=== PATIENT | male | born 1935 | race Caucasian/White ===

== ENCOUNTER 2019-01-20 09:21 | Outpatient (CLI) | payer MEDICARE ==
--- NOTE | 2019-01-20 11:35 | ULT ---
ABDOMINAL ULTRASOUND: Date: 01/20/19 HISTORY: Constant pelvic pain x1 year. Right upper quadrant abdominal pain x2 weeks. COMPARISON: None. TECHNIQUE: Utilizing multihertz transducer, sonographic imaging of the abdomen is performed in the longitudinal and transverse plane. FINDINGS: Evaluation is limited by bowel gas. The head of the pancreas has a normal echotexture. Remainder of the pancreas is obscured by bowel gas . Limited evaluation of the hepatic parenchyma. Grossly, no hepatic abnormality. Right hepatic lobe kerry sures 15.3 cm. Main portal vein is patent. Appropriate direction of flow. Suboptimal evaluation of the common bile duct. Contracted gallbladder without definite sonographic evidence of cholecystitis. Questionable sludge ve rsus nonshadowing stones. Evaluation is limited due to overall gallbladder contraction. Right kidney has a normal cortical echotexture. No hydronephrosis. Right kidney measures 5.3 x 9.0 x 5.6 cm. Limited evaluation of the left renal cortex. No evidence of hydronephrosis. Left kidney measu res 5.7 x 10.6 x 6.5 cm. Spleen has a normal echotexture, measuring 13.2 cm. Suboptimal evaluation of the IVC. Visualized aorta has a normal caliber. IMPRESSION: Limited evaluation due to bowel gas. Grossly no acute abnormality. Questionable sludge and small ston es. Correlation made with a gallbladder ultrasound from 05/31/16 does not demonstrate any evidence of cholelithiasis, gallbladder wall polyps, or sludge. If there is concern for gallbladder pathology, c onsider HIDA scan. POS: [facility] [place]
== END 2019-01-20 09:22 | disposition home or self-care (01) ==
LOC: ULT 09:21
PROVIDERS: ATTEND Internal Medicine
DX: R10.11 Right upper quadrant pain (principal)
CPT/HCPCS: 76700

== ENCOUNTER 2019-07-13 10:31 | Outpatient (CLI) | payer MEDICARE ==
[2019-07-13] MEDS ORDERED: Iopamidol-370 76% 500 ML 1 ML ONE (11:36)
--- NOTE | 2019-07-13 11:58 | CT ---
CT ABDOMEN AND PELVIS WITH ORAL AND IV CONTRAST: HISTORY: Right upper quadrant abdominal pain and constipation. FINDINGS: There are dependent changes in the lung bases. The liver, spleen, pancreas and adrenal glands appear normal. No calcified gallstones are seen. There are tiny low density lesions in the kidneys, likely c ysts. There is a 2 cm exophytic mass arising from the anterior cortex of the left kidney with attenua tion values of 33 Hounsfield units. No free air, free fluid or lymphadenopathy is seen in the abdomen or pelvis. The small bowel loops ar e not abnormally dilated. There are vascular calcifications without evidence of aneurysmal dilatation of the abdominal aorta. Degenerative changes are present in the spine. IMPRESSION: Indeterminate 2 cm left renal mass. Evaluation with MRI abdomen (with and without intravenous contras t) using renal mass protocol is recommended. POS: [facility]
== END 2019-07-13 10:32 | disposition home or self-care (01) ==
LOC: BICCT 10:31
PROVIDERS: ATTEND Physician Assistant Medical
DX: K59.09 Other constipation (principal); R10.11 Right upper quadrant pain; R63.4 Abnormal weight loss; N28.89 Other specified disorders of kidney and ureter
CPT/HCPCS: 74177; 82565; Q9967

== ENCOUNTER 2019-07-27 12:25 | Outpatient (CLI) | payer MEDICARE ==
--- NOTE | 2019-07-27 15:41 | MRI ---
MRI ABDOMEN WITH AND WITHOUT IV CONTRAST: HISTORY: Left kidney mass. CORRELATION: CT scan of 07/13/2019. FINDINGS: Exam is limited due to marked motion artifact. There are tiny bilateral renal cysts. The 2 cm exophytic mass arising from the anterior cortex of th e left upper kidney is T2 hyperintense. The characteristics on pre- and postcontrast T1 images canno t be satisfactorily evaluated due to the presence of motion artifact. No obvious postcontrast enhanc ement is definitely seen. The liver, spleen, pancreas, adrenal glands, and gallbladder appear normal. No free fluid or lymphadenopathy is seen in the abdomen. There is no evidence of aneurysmal dilatati on of the abdominal aorta. There are degenerative changes in the spine. IMPRESSION: 1. Limited exam due to motion artifact. 2. The 2 cm exophytic left renal mass is probably a cyst. A followup CT scan with and without IV co ntrast is recommended in 6 months. POS: OFF
== END 2019-07-27 12:26 | disposition home or self-care (01) ==
LOC: SCSMRI 12:25
PROVIDERS: ATTEND Physician Assistant Medical
DX: N28.89 Other specified disorders of kidney and ureter (principal); R10.11 Right upper quadrant pain; G89.29 Other chronic pain
CPT/HCPCS: 74183

== ENCOUNTER 2020-02-01 15:01 | Outpatient (CLI) | payer MEDICARE ==
--- NOTE | 2020-02-01 15:50 | CT ---
Exam: Abdomen CT without contrast Pelvic CT without contrast HISTORY: Renal cyst. COMPARISON: 07/13/2019 Correlation: Abdomen MRI 07/27/2019 FINDINGS: Abdomen CT: Lung bases:Chronic changes Heart size: Normal heart size. No significant pericardial fluid. Aorta: Atherosclerosis and elongation. No periaortic fat stranding Solid organs: Limited evaluation by the lack of IV contrast. Grossly no solid organ abnormality Lymph nodes: No gastrohepatic, retrocrural or periportal lymphadenopathy Gallbladder: No acute abnormality Mesentery: No mass, lymphadenopathy, free air or free fluid Kidneys: Bilaterally, no hydronephrosis, nephrolithiasis or perinephric fat stranding. Bilateral uret ers have a normal caliber. No hydroureter, periureteral fat stranding or ureterolithiasis. Exophytic hypodensity emanating from the anterior-superior pole of the left kidney, measures 2.4 x 2. 4 cm with an attenuation coefficient of 31 Hounsfield units. Previously, this lesion measured 2.0 x 2.0 cm. Slight interval increase in size. Alimentary canal: Limited evaluation by the lack of oral contrast. No bowel obstruction. Normal ileoc ecal junction. Normal caliber appendix. Scattered fecal material in a nondistended, nondilated colon. CT PELVIS: No mass, adenopathy, free air or free fluid. Urinary bladder: Limited evaluation due to lack of inadequate distention. Osseous structures: No lytic or blastic lesions IMPRESSION: 1. No evidence of obstructive uropathy 2. Redemonstration of exophytic hypodense focus emanating from the anterior superior pole of the left kidney. Interval slight increase in size. Continued surveillance is recommended.
== END 2020-02-01 15:02 | disposition home or self-care (01) ==
LOC: BICCT 15:01
PROVIDERS: ATTEND Internal Medicine Nephrology
DX: Q61.9 Cystic kidney disease, unspecified (principal); N28.89 Other specified disorders of kidney and ureter
CPT/HCPCS: 74176

== ENCOUNTER 2020-05-03 13:06 | Outpatient (CLI) | payer MEDICARE ==
[2020-05-03] MEDS ORDERED: Iopamidol-370 76% 500 ML 1 ML ONE (13:36)
--- NOTE | 2020-05-03 14:31 | CT ---
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 COMPARISON: CT stone protocol of 02/01/[address] abdomen and pelvis with IV contrast of 07/13/19. FINDINGS: Chronic changes of the lung bases are again seen. No calcified gallstones are noted. The liver, splee n, pancreas, and adrenal glands are normal. No free air, free fluid or lymphadenopathy is seen in the abdomen. The aorta is tortuous. There are degenerative changes in the spine. No calculi are seen in the kidneys or visualized portions of the ureters. No hydroureteronephrosis i s seen on either side. There is normal contrast excretion into the ureters. The exophytic mass arisin g from the anterior cortex of the left kidney is stable in size since 02/01/20 measuring approximately 2.5 cm and has increased in size since 07/13/19 (2 cm). There is no postcontrast enhancement in thi s mass with the noncontrast CT attenuation value of 31 Hounsfield units. IMPRESSION: Stable nonenhancing left renal mass since 02/01/20 and interval increase in size since 07/13/19. Six mo nth follow-up is recommended. POS: OFF
== END 2020-05-03 13:07 | disposition home or self-care (01) ==
LOC: BICCT 13:06
PROVIDERS: ATTEND Urology
DX: D41.01 Neoplasm of uncertain behavior of right kidney (principal); N28.89 Other specified disorders of kidney and ureter
CPT/HCPCS: 74170; 82565

== ENCOUNTER 2021-01-21 19:38 | Emergency (ER) | payer MEDICARE ==
[2021-01-21 21:42] LABS: #Basophils 0.1 thou/uL (0.0-0.2); #Eosinphils 0.4 thou/uL (0.0-0.7); #Lymphocytes 1.7 thou/uL (1.20-3.40); #Monocytes 0.9 thou/uL (0.11-0.59); #Neutrophils 7.3 thou/uL (1.40-6.50); %Basophils 0.5 % (0.0-1.0); %Eosinophils 4.2 % (0.0-10.0); %Lymphocytes 16.6 % (21.0-51.0); %Neutrophils 69.7 % (42.0-75.0); Hemoglobin 13.4 g/dL (14.0-18.0); Mean Corpuscular HGB CONC 33.9 g/dL (32.0-36.0); Mean Corpuscular Hemoglobin 34.5 pg (27.0-31.0); Mean Platelet Volume 7.3 fL (7.4-10.4); Platelet Count 311 thou/uL (130-400); RBC Distribution Width 16.7 % (11.5-14.5); Red Blood Cell (RBC) Count 3.88 mill/uL (4.70-6.10); White Blood Cell (WBC) Count 10.4 thou/uL (4.8-10.8)
[2021-01-21 22:07] LABS: ALT (SGPT) 15 U/L (8-55); AST (SGOT) 18 U/L (5-34); Albumin 4.2 g/dL (3.4-4.8); Alkaline Phosphatase 61 U/L (40-110); Anion Gap 13 mmol/L (10-20); BUN (Urea Nitrogen) 10 mg/dL (8.4-25.7); Bilirubin, Total 0.6 mg/dL (0.2-1.2); Calc. Creatinine Clearance 0 mL/min (70-130); Calcium 9.1 mg/dL (7.8-10.44); Carbon Dioxide 27 mmol/L (23-31); Chloride 99 mmol/L (98-107); Globulin 3.3 g/dL (2.4-3.5); Glucose 113 mg/dL (83-110); Potassium 4.1 mmol/L (3.5-5.1); Protein, Total 7.5 g/dL (5.8-8.1); Sodium 135 mmol/L (136-145)
== END 2021-01-21 23:57 | disposition left against medical advice (07) ==
LOC: ERS 19:38
DX: Z53.21 Procedure and treatment not carried out due to patient leaving prior to being seen by health care provider (principal)
CPT/HCPCS: 36415; 80053; 85025

== ENCOUNTER 2021-08-28 10:52 | Observation (INO) | payer MEDICARE ==
[2021-08-28] MEDS ORDERED: Aspirin Chewable 81 MG TAB ONE (11:17)
[2021-08-28 12:13] LABS: ALT (SGPT) 14 U/L (8-55); AST (SGOT) 17 U/L (5-34); Albumin 3.9 g/dL (3.4-4.8); Alkaline Phosphatase 41 U/L (40-110); Anion Gap 11 mmol/L (10-20); BUN (Urea Nitrogen) 6 mg/dL (8.4-25.7); Bilirubin, Total 0.9 mg/dL (0.2-1.2); Calc. Creatinine Clearance 0 mL/min (70-130); Calcium 8.7 mg/dL (7.8-10.44); Carbon Dioxide 26 mmol/L (23-31); Chloride 96 mmol/L (98-107); Globulin 3.2 g/dL (2.4-3.5); Glucose 117 mg/dL (83-110); Potassium 3.9 mmol/L (3.5-5.1); Protein, Total 7.1 g/dL (5.8-8.1); Sodium 129 mmol/L (136-145)
[2021-08-28 12:57] LABS: #Basophils 0.1 thou/uL (0.0-0.2); #Eosinphils 0.3 thou/uL (0.0-0.7); #Lymphocytes 1.1 thou/uL (1.20-3.40); #Monocytes 0.9 thou/uL (0.11-0.59); #Neutrophils 6.1 thou/uL (1.40-6.50); %Basophils 0.6 % (0.0-1.0); %Eosinophils 3.3 % (0.0-10.0); %Lymphocytes 13.3 % (21.0-51.0); %Monocytes 10.2 % (0.0-10.0); %Neutrophils 72.7 % (42.0-75.0); Hemoglobin 12.4 g/dL (14.0-18.0); Mean Corpuscular HGB CONC 33.2 g/dL (32.0-36.0); Mean Corpuscular Hemoglobin 34.9 pg (27.0-31.0); Mean Platelet Volume 7.1 fL (7.4-10.4); Platelet Count 373 thou/uL (130-400); Red Blood Cell (RBC) Count 3.54 mill/uL (4.70-6.10); White Blood Cell (WBC) Count 8.4 thou/uL (4.8-10.8)
[2021-08-28] MEDS ORDERED: Acetaminophen 325 MG TAB PO PRN (13:38)
[2021-08-28] MEDS ORDERED: Ondansetron PF 4 MG/2 ML Vial IVP PRN (13:38)
[2021-08-28] MEDS ORDERED: Nitroglycerin 0.4 MG TAB (25 Tab Bottle) SL PRN (13:42)
[2021-08-28] MEDS ORDERED: Enoxaparin Sodium 40 MG/0.4 ML SYRINGE SC SCH (13:45)
[2021-08-28] MEDS ORDERED: Sodium Chloride 0.9% 1,000 ML IV SCH (13:45)
[2021-08-28 14:59] LABS: Thyroid Stimulating Hormone 0.3225 uIU/mL (0.35-4.94)
[2021-08-28] MEDS ORDERED: Enoxaparin Sodium 40 MG/0.4 ML SYRINGE ONE (16:02)
[2021-08-28 16:31] LABS: Troponin I Less than 0.010 ng/mL (< 0.028)
[2021-08-28 17:50] VITALS: BMI 23.6
[2021-08-28 19:44] LABS: Troponin I Less than 0.010 ng/mL (< 0.028)
[2021-08-28] MEDS: Famotidine 20 MG TAB PO SCH (20:32)
[2021-08-28 23:13] LABS: Magnesium 2.3 mg/dL (1.6-2.6)
[2021-08-29 05:05] LABS: Anion Gap 10 mmol/L (10-20); BUN (Urea Nitrogen) 8 mg/dL (8.4-25.7); Calc. Creatinine Clearance 76 mL/min (70-130); Calcium 8.4 mg/dL (7.8-10.44); Carbon Dioxide 26 mmol/L (23-31); Chloride 101 mmol/L (98-107); Glucose 97 mg/dL (83-110); Potassium 3.8 mmol/L (3.5-5.1); Sodium 133 mmol/L (136-145)
[2021-08-29 05:17] LABS: Band 4 % (5-11); Eosinophils 6 % (0-10); Hemoglobin 12.2 g/dL (14.0-18.0); Lymphocytes 15 % (21-51); MDiff Complete? YES; Mean Corpuscular HGB CONC 33.8 g/dL (32.0-36.0); Mean Corpuscular Hemoglobin 34.8 pg (27.0-31.0); Mean Platelet Volume 6.7 fL (7.4-10.4); Monocytes 12 % (0-10); Neutrophil 61 % (42-75); Platelet Count 362 thou/uL (130-400); RBC Distribution Width 16.9 % (11.5-14.5); Reactive Lymphocytes 2 % (0-10); Red Blood Cell (RBC) Count 3.51 mill/uL (4.70-6.10); White Blood Cell (WBC) Count 7.7 thou/uL (4.8-10.8)
[2021-08-29 08:52] VITALS: TEMP 97.9
[2021-08-29] MEDS ORDERED: Aspirin 81 mg Enteric Coated Tablet PO SCH (09:00)
[2021-08-29] MEDS ORDERED: Amlodipine 5 MG TAB PO SCH (09:00)
[2021-08-29] MEDS ORDERED: Enoxaparin Sodium 40 MG/0.4 ML SYRINGE SC SCH (09:00)
[2021-08-29 11:22] VITALS: BP 153/74
[2021-08-29 11:25] LABS: SARS-CoV-2 PCR by NAA Not Detected (NotDetected)
[2021-08-29] MEDS ORDERED: ADENOSINE 60 MG/20 ML VIAL ONE (11:32)
[2021-08-29] MEDS: Famotidine 20 MG TAB PO SCH (11:36)
== END 2021-08-29 15:19 | disposition home or self-care (01) ==
LOC: ERS 10:52 → ERHOLD 13:33 → 2NO 17:10
PROVIDERS: ADMIT Internal Medicine; ATTEND Physician Assistant Medical
DX: R07.89 Other chest pain (principal); D53.9 Nutritional anemia, unspecified; I10 Essential (primary) hypertension; E03.9 Hypothyroidism, unspecified; E87.1 Hypo-osmolality and hyponatremia; I07.1 Rheumatic tricuspid insufficiency; Z79.82 Long term (current) use of aspirin; Z79.899 Other long term (current) drug therapy; Z20.822 Contact with and (suspected) exposure to COVID-19
CPT/HCPCS: 71045; 78452; 80048; 82607; 82746; 83735; 84436; 84484 ×2; 85025; 93005; 93017; 93306; 96372 ×2; 99285; A9500; G0378 ×3; U0003; U0005; 36415; 80053; 84443; J0153; J1650; J7050

== ENCOUNTER 2022-07-31 16:27 | Inpatient (IN) | payer MEDICARE ==
[~2022-07-31 16:27] MED LIST: Iopamidol-370 76% 500 ML 1 ML ONE
[2022-07-31 17:21] LABS: Bacteria/HPF 1+ HPF (None Seen); Bilirubin Negative (Negative); Blood, Urine 1+ (Negative); Clarity Clear (Clear); Glucose, Urine (Dipstick) Normal (Negative); Ketone, Urine 20 mg/dL (Negative); Leukocyte 250 Leu/uL (Negative); Nitrite Negative (Negative); Protein, Urine (Dipstick) 30 mg/dL (Neg-Trace); Specific Gravity, Urine 1.014 (1.002-1.036); Squamous Epithelial 0-3 HPF (0-3); Urobilinogen Normal mg/dL (Less than 2)
[2022-07-31] MEDS ORDERED: Cefepime 2 GM VIAL ONE (17:26)
[2022-07-31] MEDS ORDERED: Vancomycin 1.5 GRAM/300 ML BAG 1.5 GM in Premix Bag 1 BAG IVPB SCH (17:45)
[2022-07-31 18:24] LABS: Hemoglobin 11.8 g/dL (14.0-18.0); Mean Corpuscular HGB CONC 35.2 g/dL (32.0-36.0); Mean Corpuscular Hemoglobin 36.4 pg (27.0-31.0); Mean Platelet Volume 8.1 fL (7.4-10.4); Platelet Count 223 10x3/uL (130-400); RBC Distribution Width 16.6 % (11.5-14.5); Red Blood Cell (RBC) Count 3.24 mill/uL (4.70-6.10)
[2022-07-31 18:38] LABS: Band 14 % (5-11); Lymphocytes 4 % (21-51); MDiff Complete? YES; Monocytes 15 % (0-10); Neutrophil 62 % (42-75); Platelet Morphology Comment Appears Adequate; RBC Morphology Normal; Reactive Lymphocytes 5 % (0-10)
[2022-07-31 18:39] LABS: ALT (SGPT) 19 U/L (8-55); AST (SGOT) 38 U/L (5-34); Albumin 3.1 g/dL (3.4-4.8); Alkaline Phosphatase 38 U/L (40-110); Anion Gap 13 mmol/L (10-20); BUN (Urea Nitrogen) 12 mg/dL (8.4-25.7); Bilirubin, Total 1.2 mg/dL (0.2-1.2); Calc. Creatinine Clearance 0 mL/min (70-130); Calcium 7.6 mg/dL (7.8-10.44); Carbon Dioxide 22 mmol/L (23-31); Chloride 88 mmol/L (98-107); Estimated GFR 90; Globulin 2.7 g/dL (2.4-3.5); Glucose 103 mg/dL (83-110); Lipase 19 U/L (8-78); Potassium 4.1 mmol/L (3.5-5.1); Protein, Total 5.8 g/dL (5.8-8.1)
[2022-07-31 18:47] LABS: Sodium 120 mmol/L (136-145)
[2022-07-31 19:00] LABS: SARS-CoV-2 NAA Rapid Test Not Detected (NotDetected)
[2022-07-31] MEDS ORDERED: Ondansetron PF 4 MG/2 ML Vial IVP PRN (20:24)
[2022-07-31] MEDS ORDERED: Acetaminophen 650 MG Suppository PR PRN (20:24)
[2022-07-31] MEDS ORDERED: Ondansetron ODT 4 MG TAB PO PRN (20:24)
[2022-07-31] MEDS ORDERED: Morphine 4 MG/ML VIAL SLOW IVP PRN (20:34)
[2022-07-31 21:25] LABS: Lactic Acid 1.3 mmol/L (0.5-2.2)
[2022-07-31] MEDS ORDERED: Azithromycin 500 MG VIAL ONE (22:50)
[2022-07-31] MEDS: Azithromycin 500 MG in Sodium Chloride 0.9% 250 ML 250 ML IVPB SCH (23:00)
[2022-08-01] MEDS ORDERED: cefTRIAXone\\ROCEPHIN 1 GM VIAL ONE (05:47)
[2022-08-01] MEDS: cefTRIAXone\\ROCEPHIN 1 GM in Sodium Chloride 0.9% 100 ML IVPB SCH (05:53)
[2022-08-01 06:01] LABS: Hemoglobin 10.5 g/dL (14.0-18.0); Mean Corpuscular HGB CONC 35.1 g/dL (32.0-36.0); Mean Corpuscular Hemoglobin 35.8 pg (27.0-31.0); Mean Platelet Volume 8.1 fL (7.4-10.4); Platelet Count 198 10x3/uL (130-400); RBC Distribution Width 16.5 % (11.5-14.5); Red Blood Cell (RBC) Count 2.92 mill/uL (4.70-6.10)
[2022-08-01 06:11] LABS: Anion Gap 9 mmol/L (10-20); BUN (Urea Nitrogen) 11 mg/dL (8.4-25.7); Calc. Creatinine Clearance 0 mL/min (70-130); Calcium 7.6 mg/dL (7.8-10.44); Carbon Dioxide 24 mmol/L (23-31); Chloride 92 mmol/L (98-107); Estimated GFR 91; Glucose 96 mg/dL (83-110); Potassium 3.6 mmol/L (3.5-5.1); Sodium 121 mmol/L (136-145)
[2022-08-01 06:44] LABS: Anisocytosis SLIGHT = 6-15 cells (100X) (0-5/hpf); Band 10 % (5-11); Lymphocytes 6 % (21-51); MDiff Complete? YES; Monocytes 13 % (0-10); Neutrophil 71 % (42-75)
[2022-08-01] MEDS: Oseltamivir 75 MG CAP PO SCH ×3 (06:54→21:31)
[2022-08-01 09:44] LABS: Anion Gap 9 mmol/L (10-20); BUN (Urea Nitrogen) 11 mg/dL (8.4-25.7); Calc. Creatinine Clearance 0 mL/min (70-130); Calcium 7.7 mg/dL (7.8-10.44); Carbon Dioxide 25 mmol/L (23-31); Chloride 91 mmol/L (98-107); Estimated GFR 90; Glucose 110 mg/dL (83-110); Potassium 3.7 mmol/L (3.5-5.1); Sodium 121 mmol/L (136-145)
[2022-08-01 13:35] LABS: Anion Gap 11 mmol/L (10-20); BUN (Urea Nitrogen) 12 mg/dL (8.4-25.7); Calc. Creatinine Clearance 0 mL/min (70-130); Calcium 8.2 mg/dL (7.8-10.44); Carbon Dioxide 23 mmol/L (23-31); Chloride 91 mmol/L (98-107); Estimated GFR 90; Glucose 94 mg/dL (83-110); Potassium 3.6 mmol/L (3.5-5.1); Sodium 121 mmol/L (136-145)
[2022-08-01] MEDS ORDERED: Sodium Chloride 3% 500 ML IVPB SCH (14:15)
[2022-08-01 15:51] LABS: ALT (SGPT) 18 U/L (8-55); AST (SGOT) 35 U/L (5-34); Albumin 2.9 g/dL (3.4-4.8); Alkaline Phosphatase 46 U/L (40-110); Anion Gap 8 mmol/L (10-20); BUN (Urea Nitrogen) 13 mg/dL (8.4-25.7); Bilirubin, Total 0.6 mg/dL (0.2-1.2); Calc. Creatinine Clearance 0 mL/min (70-130); Calcium 7.5 mg/dL (7.8-10.44); Carbon Dioxide 26 mmol/L (23-31); Chloride 90 mmol/L (98-107); Estimated GFR 87; Globulin 2.6 g/dL (2.4-3.5); Glucose 99 mg/dL (83-110); Potassium 3.5 mmol/L (3.5-5.1); Protein, Total 5.5 g/dL (5.8-8.1); Sodium 120 mmol/L (136-145)
[2022-08-01 15:57] LABS: Anion Gap 8 mmol/L (10-20); BUN (Urea Nitrogen) 13 mg/dL (8.4-25.7); Calc. Creatinine Clearance 0 mL/min (70-130); Calcium 7.6 mg/dL (7.8-10.44); Carbon Dioxide 25 mmol/L (23-31); Chloride 91 mmol/L (98-107); Estimated GFR 88; Glucose 98 mg/dL (83-110); Potassium 3.5 mmol/L (3.5-5.1); Sodium 120 mmol/L (136-145)
[2022-08-01 19:22] LABS: Anion Gap 7 mmol/L (10-20); BUN (Urea Nitrogen) 15 mg/dL (8.4-25.7); Calc. Creatinine Clearance 0 mL/min (70-130); Calcium 7.6 mg/dL (7.8-10.44); Carbon Dioxide 26 mmol/L (23-31); Chloride 93 mmol/L (98-107); Estimated GFR 87; Glucose 100 mg/dL (83-110); Potassium 3.5 mmol/L (3.5-5.1); Sodium 122 mmol/L (136-145)
[2022-08-01 19:31] LABS: Sodium 122 mmol/L (136-145)
[2022-08-01] MEDS: Azithromycin 500 MG in Sodium Chloride 0.9% 250 ML 250 ML IVPB SCH (21:32)
[2022-08-01 21:56] VITALS: BMI 20.6
[2022-08-01 23:18] LABS: Anion Gap 12 mmol/L (10-20); BUN (Urea Nitrogen) 13 mg/dL (8.4-25.7); Calc. Creatinine Clearance 83 mL/min (70-130); Calcium 7.5 mg/dL (7.8-10.44); Carbon Dioxide 21 mmol/L (23-31); Chloride 95 mmol/L (98-107); Estimated GFR 92; Glucose 80 mg/dL (83-110); Potassium 3.6 mmol/L (3.5-5.1); Sodium 124 mmol/L (136-145)
[2022-08-02] MEDS: Levothyroxine Sodium 125 MCG TAB PO SCH (05:30)
[2022-08-02] MEDS: cefTRIAXone\\ROCEPHIN 1 GM in Sodium Chloride 0.9% 100 ML IVPB SCH (05:30)
[2022-08-02 06:46] LABS: Hemoglobin 11.1 g/dL (14.0-18.0); Mean Corpuscular HGB CONC 35.1 g/dL (32.0-36.0); Mean Corpuscular Hemoglobin 36.6 pg (27.0-31.0); Mean Platelet Volume 7.8 fL (7.4-10.4); Platelet Count 215 10x3/uL (130-400); RBC Distribution Width 16.5 % (11.5-14.5); Red Blood Cell (RBC) Count 3.02 mill/uL (4.70-6.10)
[2022-08-02 07:00] LABS: ALT (SGPT) 21 U/L (8-55); AST (SGOT) 33 U/L (5-34); Albumin 2.8 g/dL (3.4-4.8); Alkaline Phosphatase 38 U/L (40-110); Anion Gap 11 mmol/L (10-20); BUN (Urea Nitrogen) 11 mg/dL (8.4-25.7); Bilirubin, Total 0.7 mg/dL (0.2-1.2); Calc. Creatinine Clearance 87 mL/min (70-130); Calcium 7.7 mg/dL (7.8-10.44); Carbon Dioxide 22 mmol/L (23-31); Chloride 95 mmol/L (98-107); Estimated GFR 93; Globulin 2.5 g/dL (2.4-3.5); Glucose 81 mg/dL (83-110); Potassium 3.2 mmol/L (3.5-5.1); Protein, Total 5.3 g/dL (5.8-8.1); Sodium 125 mmol/L (136-145)
[2022-08-02] MEDS: Oseltamivir 75 MG CAP PO SCH ×2 (09:38→20:21)
[2022-08-02] MEDS: Amlodipine 5 MG TAB PO SCH (09:38)
[2022-08-02] MEDS: Aspirin 81 mg Enteric Coated Tablet PO SCH (09:38)
[2022-08-02] MEDS ORDERED: Polyethylene Glycol 3350 17 GM Packet PO SCH (10:30)
[2022-08-02 10:47] LABS: Anion Gap 13 mmol/L (10-20); BUN (Urea Nitrogen) 11 mg/dL (8.4-25.7); Calc. Creatinine Clearance 81 mL/min (70-130); Calcium 7.8 mg/dL (7.8-10.44); Carbon Dioxide 21 mmol/L (23-31); Chloride 93 mmol/L (98-107); Estimated GFR 91; Glucose 113 mg/dL (83-110); Potassium 3.4 mmol/L (3.5-5.1); Sodium 124 mmol/L (136-145)
[2022-08-02 11:05] LABS: Band 3 % (5-11); Eosinophils 1 % (0-10); Lymphocytes 11 % (21-51); MDiff Complete? YES; Monocytes 19 % (0-10); Myelocyte 1 % (0-0); Neutrophil 63 % (42-75); RBC Morphology Normal; Reactive Lymphocytes 2 % (0-10)
[2022-08-02] MEDS ORDERED: Ipratropium/Albuterol 3 ML NEB NEB PRN (11:08)
[2022-08-02] MEDS ORDERED: Potassium Chloride 20 MEQ TAB PO SCH (11:15)
[2022-08-02 16:06] LABS: Anion Gap 13 mmol/L (10-20); BUN (Urea Nitrogen) 16 mg/dL (8.4-25.7); Calc. Creatinine Clearance 74 mL/min (70-130); Calcium 7.9 mg/dL (7.8-10.44); Carbon Dioxide 22 mmol/L (23-31); Chloride 95 mmol/L (98-107); Estimated GFR 88; Glucose 130 mg/dL (83-110); Potassium 3.7 mmol/L (3.5-5.1); Sodium 126 mmol/L (136-145)
[2022-08-02] MEDS: Azithromycin 500 MG in Sodium Chloride 0.9% 250 ML 250 ML IVPB SCH (20:21)
[2022-08-02] MEDS: Acetaminophen 325 MG TAB PO PRN (20:21)
[2022-08-03] MEDS: Levothyroxine Sodium 125 MCG TAB PO SCH (05:10)
[2022-08-03] MEDS: cefTRIAXone\\ROCEPHIN 1 GM in Sodium Chloride 0.9% 100 ML IVPB SCH (05:10)
[2022-08-03 09:21] LABS: Anion Gap 12 mmol/L (10-20); BUN (Urea Nitrogen) 13 mg/dL (8.4-25.7); Calc. Creatinine Clearance 77 mL/min (70-130); Calcium 7.9 mg/dL (7.8-10.44); Carbon Dioxide 26 mmol/L (23-31); Chloride 96 mmol/L (98-107); Estimated GFR 90; Glucose 109 mg/dL (83-110); Potassium 3.9 mmol/L (3.5-5.1); Sodium 130 mmol/L (136-145)
[2022-08-03] MEDS: Polyethylene Glycol 3350 17 GM Packet PO SCH (09:23)
[2022-08-03] MEDS: Aspirin 81 mg Enteric Coated Tablet PO SCH (09:23)
[2022-08-03] MEDS: Amlodipine 5 MG TAB PO SCH (09:23)
[2022-08-03] MEDS: Oseltamivir 75 MG CAP PO SCH ×2 (09:23→22:13)
[2022-08-03] MEDS: Azithromycin 500 MG in Sodium Chloride 0.9% 250 ML 250 ML IVPB SCH (22:12)
[2022-08-04 05:26] LABS: ALT (SGPT) 19 U/L (8-55); AST (SGOT) 24 U/L (5-34); Albumin 2.9 g/dL (3.4-4.8); Alkaline Phosphatase 41 U/L (40-110); Anion Gap 6 mmol/L (10-20); BUN (Urea Nitrogen) 14 mg/dL (8.4-25.7); Bilirubin, Total 0.7 mg/dL (0.2-1.2); Calc. Creatinine Clearance 84 mL/min (70-130); Calcium 8.1 mg/dL (7.8-10.44); Carbon Dioxide 27 mmol/L (23-31); Chloride 100 mmol/L (98-107); Estimated GFR 91; Globulin 2.7 g/dL (2.4-3.5); Glucose 98 mg/dL (83-110); Potassium 3.6 mmol/L (3.5-5.1); Protein, Total 5.6 g/dL (5.8-8.1); Sodium 129 mmol/L (136-145)
[2022-08-04] MEDS: cefTRIAXone\\ROCEPHIN 1 GM in Sodium Chloride 0.9% 100 ML IVPB SCH (06:00)
[2022-08-04] MEDS: Levothyroxine Sodium 125 MCG TAB PO SCH (06:01)
[2022-08-04] MEDS ORDERED: FLU VACC QS2022-23(65YR UP)/PF 240 MCG/0.7 ML SYRINGE IM ONE (09:00)
[2022-08-04] MEDS: Polyethylene Glycol 3350 17 GM Packet PO SCH (09:41)
[2022-08-04] MEDS: Aspirin 81 mg Enteric Coated Tablet PO SCH (09:41)
[2022-08-04] MEDS: Oseltamivir 75 MG CAP PO SCH ×2 (09:41→20:40)
[2022-08-04] MEDS: Amlodipine 5 MG TAB PO SCH (09:41)
[2022-08-05] MEDS: Levothyroxine Sodium 125 MCG TAB PO SCH (06:56)
[2022-08-05] MEDS: Oseltamivir 75 MG CAP PO SCH (10:38)
[2022-08-05] MEDS: Amlodipine 5 MG TAB PO SCH (10:39)
[2022-08-05] MEDS: Polyethylene Glycol 3350 17 GM Packet PO SCH (10:39)
[2022-08-05] MEDS: Aspirin 81 mg Enteric Coated Tablet PO SCH (10:39)
[2022-08-05 13:44] LABS: Anion Gap 11 mmol/L (10-20); BUN (Urea Nitrogen) 11 mg/dL (8.4-25.7); Calc. Creatinine Clearance 74 mL/min (70-130); Calcium 8.2 mg/dL (7.8-10.44); Carbon Dioxide 26 mmol/L (23-31); Chloride 96 mmol/L (98-107); Estimated GFR 88; Glucose 121 mg/dL (83-110); Potassium 3.6 mmol/L (3.5-5.1); Sodium 129 mmol/L (136-145)
[2022-08-06] MEDS ORDERED: Bisacodyl 5 MG TAB PO PRN (01:01)
[2022-08-06] MEDS ORDERED: Senokot S 8.6-50 MG TAB PO PRN (01:01)
[2022-08-06] MEDS ORDERED: Simethicone Chewable 80 MG TAB PO PRN (01:15)
[2022-08-06 05:39] LABS: Anion Gap 8 mmol/L (10-20); BUN (Urea Nitrogen) 16 mg/dL (8.4-25.7); Calc. Creatinine Clearance 76 mL/min (70-130); Calcium 8.3 mg/dL (7.8-10.44); Carbon Dioxide 28 mmol/L (23-31); Chloride 98 mmol/L (98-107); Estimated GFR 88; Glucose 100 mg/dL (83-110); Potassium 3.9 mmol/L (3.5-5.1); Sodium 130 mmol/L (136-145)
[2022-08-06] MEDS: Levothyroxine Sodium 125 MCG TAB PO SCH (06:43)
[2022-08-06] MEDS: Aspirin 81 mg Enteric Coated Tablet PO SCH (09:24)
[2022-08-06] MEDS: Amlodipine 5 MG TAB PO SCH (09:24)
[2022-08-06] MEDS: Polyethylene Glycol 3350 17 GM Packet PO SCH (09:25)
[2022-08-06] MEDS: Acetaminophen 325 MG TAB PO PRN (16:19)
[2022-08-06 23:08] LABS: L.pneumophilia Abs <0.91 OD ratio (0.00-0.90)
[2022-08-07 05:20] LABS: Anion Gap 10 mmol/L (10-20); BUN (Urea Nitrogen) 15 mg/dL (8.4-25.7); Calc. Creatinine Clearance 77 mL/min (70-130); Calcium 8.5 mg/dL (7.8-10.44); Carbon Dioxide 25 mmol/L (23-31); Chloride 98 mmol/L (98-107); Estimated GFR 89; Glucose 100 mg/dL (83-110); Sodium 129 mmol/L (136-145)
[2022-08-07] MEDS: Levothyroxine Sodium 125 MCG TAB PO SCH (06:11)
[2022-08-07] MEDS: Amlodipine 5 MG TAB PO SCH (10:58)
[2022-08-07] MEDS: Aspirin 81 mg Enteric Coated Tablet PO SCH (10:59)
[2022-08-07] MEDS: Polyethylene Glycol 3350 17 GM Packet PO SCH (11:00)
[2022-08-07 13:01] VITALS: BP 122/75; TEMP 98.2
[2022-08-07 23:08] LABS: Mycoplasma pneumoniae IgG AB Less than 100 U/mL (0-99); Mycoplasma pneumoniae IgM AB Less than 770 U/mL (0-769)
== END 2022-08-07 15:46 | DRG 193 ==
LOC: ERS 16:27 → ERHOLD 19:30 → IMCU/EMU 08-01 18:23 → 2NO 08-03 17:52
PROVIDERS: ADMIT Internal Medicine; ATTEND Internal Medicine
DX: J10.00 Influenza due to other identified influenza virus with unspecified type of pneumonia (principal); G93.41 Metabolic encephalopathy; E87.1 Hypo-osmolality and hyponatremia; I50.22 Chronic systolic (congestive) heart failure; N17.9 Acute kidney failure, unspecified; I13.0 Hypertensive heart and chronic kidney disease with heart failure and stage 1 through stage 4 chronic kidney disease, or unspecified chronic kidney disease; Z20.822 Contact with and (suspected) exposure to COVID-19; G89.29 Other chronic pain; M54.50 Low back pain, unspecified; N18.2 Chronic kidney disease, stage 2 (mild); D63.1 Anemia in chronic kidney disease; Z28.21 Immunization not carried out because of patient refusal; Z79.899 Other long term (current) drug therapy; Z79.82 Long term (current) use of aspirin; Z98.890 Other specified postprocedural states
CPT/HCPCS: 36415; 70450; 71045; 71260; 80048; 80053; 81003; 81015; 83605; 83690; 83735; 83880; 83930; 84443; 84484; 85025; 86713; 87040; 87086; 93005; 94760; 96365; 96375; J0456; J0692; J0696; J1650; J3370; J3490; J7050; J7131; Q9967